=== PATIENT | female | born 1960 | race Caucasian/White ===

== ENCOUNTER 2016-10-29 21:20 | Emergency (ER) | payer SELFPAY ==
[~2016-10-29] VITALS: Ht 167.6 cm; Wt 103.4 kg
[2016-10-29 21:40] LABS: HEMATOCRIT 40.8 % (36.0-46.0); MCHC 34.3 G/DL (30.0-36.0); MCV 84.6 FL (83-99); MEAN PLAT.VOLUME 9.7 uM^3 (9.5-12.4); PLATELET COUNT 280 K/uL (156-360); RBC DIS.WIDTH-CV 12.5 % (11.8-14.6); RBC DIS.WIDTH-SD 37.6 % (39-53); RED BLOOD COUNT 4.82 M/uL (3.80-5.20); WHITE BLOOD COUNT 12.3 K/uL (4.1-10.2)
[2016-10-29 21:49] LABS: CHLORIDE 106 mEq/L (99-109); POTASSIUM 3.4 mEq/L (3.7-5.4); SODIUM 142 mEq/L (136-147)
[2016-10-29 21:51] LABS: GLUCOSE 135 mg/dL (70-99)
[2016-10-29 21:52] LABS: ANION GAP 13 MEQ/L (2-14)
[2016-10-29 21:55] LABS: GFR ESTIMATE (CALCULATED) > 59 mL/min/
[2016-10-29 21:56] LABS: UREA NITROGEN (BUN) 17 mg/dL (9-23)
[2016-10-29] MEDS ORDERED: RAMIPRIL5 MG PO (22:17)
[2016-10-29 22:56] LABS: MAGNESIUM 2.3 mg/dL (1.3-2.7)
[2016-10-30 00:26] VITALS: BP 155/92
== END 2016-10-30 00:27 | disposition home or self-care (01) ==
LOC: EME 21:20
DX: R20.2 Paresthesia of skin (principal); I10 Essential (primary) hypertension; Z88.0 Allergy status to penicillin
CPT/HCPCS: 70450; 71020; 80048; 82310; 83735; 84443; 85027; 99281; 99284

== ENCOUNTER 2017-12-06 21:22 | Emergency (ER) | payer SELFPAY ==
[~2017-12-06] VITALS: Ht 170.2 cm; Wt 102.1 kg
[~2017-12-06 21:22] MED LIST: RAMIPRIL5 MG PO
[2017-12-06 22:20] LABS: HEMATOCRIT 40.6 % (36.0-46.0); HEMOGLOBIN 13.8 G/DL (11.9-15.5); MCH 29.7 PG (29.0-34.0); MCV 87.3 FL (83-99); PLATELET COUNT 299 K/uL (156-360); RBC DIS.WIDTH-SD 38.5 % (39-53); RED BLOOD COUNT 4.65 M/uL (3.80-5.20); WHITE BLOOD COUNT 8.6 K/uL (4.1-10.2)
[2017-12-06 22:31] LABS: CHLORIDE 103 mEq/L (99-109); POTASSIUM 4.3 mEq/L (3.7-5.4); SODIUM 139 mEq/L (136-147)
[2017-12-06 22:33] LABS: GLUCOSE 98 mg/dL (70-99)
[2017-12-06 22:37] LABS: CREATININE 0.8 mg/dL (0.6-1.3); GFR ESTIMATE (CALCULATED) > 59 mL/min/; UREA NITROGEN (BUN) 13 mg/dL (9-23)
[2017-12-06 22:45] LABS: TROP-I INTERPRETATION NEGATIVE; TROPONIN-I < 0.01 ng/mL (0.0-0.30)
[2017-12-07 04:00] LABS: TROP-I INTERPRETATION NEGATIVE; TROPONIN-I < 0.01 ng/mL (0.0-0.30)
[2017-12-07] MEDS ORDERED: TYLENOL WITH C1 EACH PO (04:36)
[2017-12-07 05:11] VITALS: BP 133/88
[2017-12-07 07:26] LABS: BASOPHIL (%) 0.8 % (0-1); BASOPHIL COUNT 0.1 K/uL (0-0.1); EOSINOPHIL (%) 2.4 % (0-5); EOSINOPHIL COUNT 0.2 K/uL (0-0.3); IMMATURE GRANULOCYTE (%) 0.3 % (0.0-0.7); LYMPHOCYTE (%) 30.1 % (15-42); LYMPHOCYTE COUNT 2.6 K/uL (1.0-2.8); MONOCYTE (%) 11.4 % (3-12); NEUTROPHIL COUNT 4.8 K/uL (1.8-6.4)
== END 2017-12-07 05:15 | disposition home or self-care (01) ==
LOC: EME 21:22
PROVIDERS: Emergency Medicine
DX: J12.9 Viral pneumonia, unspecified (principal); M30.1 Polyarteritis with lung involvement [Churg-Strauss]; I10 Essential (primary) hypertension; Z87.891 Personal history of nicotine dependence; F32.9 Major depressive disorder, single episode, unspecified; F41.9 Anxiety disorder, unspecified; Z88.0 Allergy status to penicillin
CPT/HCPCS: 71046; 71275; 80048; 84484; 85025; 85027; 85379; 93005; 99281; 99284

== ENCOUNTER 2018-02-07 12:57 | Inpatient (IN) | payer SELFPAY ==
[~2018-02-07] VITALS: Ht 166.4 cm; Wt 103.8 kg
[~2018-02-07 12:57] MED LIST changes: +AZELASTINE205.5 MCG/ BOTH NARES; +NORVASC5 MG PO; +SYMBICORT60 INHALA1 IH; +TYLENOL WITH C1 EACH PO; +VENTOLIN HFA18 GM IH; +ZESTRIL40 MG PO
[2018-02-07 21:06] LABS: BASOPHIL (%) 0.3 % (0-1); EOSINOPHIL (%) 1.2 % (0-5); EOSINOPHIL COUNT 0.2 K/uL (0-0.3); HEMATOCRIT 34.5 % (36.0-46.0); IMMATURE GRANULOCYTE (%) 0.9 % (0.0-0.7); LYMPHOCYTE (%) 8.3 % (15-42); MCH 29.5 PG (29.0-34.0); MCHC 33.9 G/DL (30.0-36.0); MCV 86.9 FL (83-99); MONOCYTE (%) 7.4 % (3-12); MONOCYTE COUNT 0.9 K/uL (0-0.8); NEUTROPHIL (%) 81.9 % (45-76); RBC DIS.WIDTH-CV 12.8 % (11.8-14.6); RBC DIS.WIDTH-SD 40.7 % (39-53); RED BLOOD COUNT 3.97 M/uL (3.80-5.20); WHITE BLOOD COUNT 12.2 K/uL (4.1-10.2)
[2018-02-07 21:12] LABS: HEMOGLOBIN 11.7 G/DL (11.9-15.5); PLATELET COUNT 235 K/uL (156-360)
[2018-02-07 21:16] LABS: CHLORIDE 108 mEq/L (99-109); POTASSIUM 4.2 mEq/L (3.7-5.4); SODIUM 137 mEq/L (136-147)
[2018-02-07 21:18] LABS: GLUCOSE 103 mg/dL (70-99)
[2018-02-07 21:22] LABS: CREATININE 0.8 mg/dL (0.6-1.3); GFR ESTIMATE (CALCULATED) > 59 mL/min/; UREA NITROGEN (BUN) 13 mg/dL (9-23)
[2018-02-07] MEDS ORDERED: ADVIL,NUPRIN,M200 MG PO (22:56)
[2018-02-07] MEDS ORDERED: ASCORBIC ACID100 MG PO (22:57)
[2018-02-07] MEDS ORDERED: VITAMIN B12 100MCG PO (22:58)
[2018-02-07] MEDS ORDERED: VITAMIN B COMP1 EACH PO (22:58)
[2018-02-07] MEDS ORDERED: VITAMIN B-6100 MG PO (22:59)
[2018-02-07] MEDS ORDERED: VITAMIN D310000 UNI1 PO (23:16)
[2018-02-07 23:52] LABS: TROP-I INTERPRETATION NEGATIVE; TROPONIN-I < 0.01 ng/mL (0.0-0.30)
[2018-02-08] VITALS (7 sets, daily range): BP systolic 106–158; BP diastolic 55–86
[2018-02-08 05:41] LABS: HEMATOCRIT 34.7 % (36.0-46.0); MCHC 31.7 G/DL (30.0-36.0); MCV 88.3 FL (83-99); PLATELET COUNT 223 K/uL (156-360); RBC DIS.WIDTH-CV 12.5 % (11.8-14.6); RBC DIS.WIDTH-SD 40.7 % (39-53); RED BLOOD COUNT 3.93 M/uL (3.80-5.20)
[2018-02-08 06:23] LABS: ALBUMIN 3.7 G/DL (3.2-4.8); ALKALINE PHOSPHATASE 40 IU/L (3-129); ALT (GPT) 18 IU/L (3-49); AST (GOT) 23 IU/L (2-34); CHLORIDE 107 MEQ/L (99-109); CREATININE 0.7 MG/DL (0.6-1.3); GFR ESTIMATE (CALCULATED) > 59 mL/min/; GLUCOSE 194 mg/dL (70-99); POTASSIUM 3.9 MEQ/L (3.7-5.4); SODIUM 140 MEQ/L (136-147); TOTAL BILIRUBIN 0.5 MG/DL (0.0-1.0); TOTAL PROTEIN 6.2 G/DL (6.4-8.3); UREA NITROGEN (BUN) 12 mg/dL (9-23)
[2018-02-09 05:21] LABS: HEMATOCRIT 32.8 % (36.0-46.0); HEMOGLOBIN 10.9 G/DL (11.9-15.5); MCH 29.1 PG (29.0-34.0); MCHC 33.2 G/DL (30.0-36.0); MCV 87.7 FL (83-99); PLATELET COUNT 240 K/uL (156-360); RBC DIS.WIDTH-CV 12.4 % (11.8-14.6); RBC DIS.WIDTH-SD 39.6 % (39-53); RED BLOOD COUNT 3.74 M/uL (3.80-5.20); WHITE BLOOD COUNT 15.4 K/uL (4.1-10.2)
[2018-02-09 05:26] VITALS: BP 104/59
[2018-02-09 05:45] LABS: CHLORIDE 108 MEQ/L (99-109); CREATININE 0.7 MG/DL (0.6-1.3); GFR ESTIMATE (CALCULATED) > 59 mL/min/; GLUCOSE 184 mg/dL (70-99); POTASSIUM 4.3 MEQ/L (3.7-5.4); SODIUM 140 MEQ/L (136-147); UREA NITROGEN (BUN) 20 mg/dL (9-23)
[2018-02-09 07:30] VITALS: BP 105/80
[2018-02-09 11:53] VITALS: BP 107/60
[2018-02-09 13:53] LABS: SCL-70 (SCLERODERMA) ANTIBODY ND U/mL (0-99)
[2018-02-09 17:30] VITALS: BP 118/97
[2018-02-09 19:24] VITALS: BP 128/71
[2018-02-10] VITALS: BP 125/65
[2018-02-10 04:35] VITALS: BP 120/74
[2018-02-10 05:34] LABS: HEMATOCRIT 32.4 % (36.0-46.0); HEMOGLOBIN 10.5 G/DL (11.9-15.5); MCH 28.5 PG (29.0-34.0); MCHC 32.4 G/DL (30.0-36.0); PLATELET COUNT 259 K/uL (156-360); RBC DIS.WIDTH-CV 12.5 % (11.8-14.6); RBC DIS.WIDTH-SD 40.3 % (39-53); RED BLOOD COUNT 3.68 M/uL (3.80-5.20); WHITE BLOOD COUNT 15.9 K/uL (4.1-10.2)
[2018-02-10 05:50] LABS: CHLORIDE 108 MEQ/L (99-109); CREATININE 0.6 MG/DL (0.6-1.3); GFR ESTIMATE (CALCULATED) > 59 mL/min/; GLUCOSE 158 mg/dL (70-99); POTASSIUM 4.4 MEQ/L (3.7-5.4); SODIUM 139 MEQ/L (136-147); UREA NITROGEN (BUN) 22 mg/dL (9-23)
[2018-02-10 09:05] VITALS: BP 112/62
[2018-02-10 12:45] VITALS: BP 133/75
[2018-02-10 17:43] VITALS: BP 133/81
[2018-02-10 19:32] VITALS: BP 149/75
[2018-02-11 00:49] VITALS: BP 129/78
[2018-02-11 05:20] VITALS: BP 136/76
[2018-02-11 08:17] VITALS: BP 122/63
[2018-02-11] MEDS ORDERED: LEVAQUIN500 MG PO (11:57)
[2018-02-11] MEDS ORDERED: PREDNISONE10 MG PO (11:57)
[2018-02-11 13:55] LABS: Neutrophil Cytoplasmic Aby Negative (Negative)
== END 2018-02-11 14:29 | disposition home or self-care (01) | DRG 853 ==
LOC: AMB 12:57 → EME 12:57 → EDSTATUS 13:00 → AMB 13:00 → 4EAST 22:30 → EDOF 22:30 → CANRESERV 22:32 → ENRESERV 22:32 → 4EAST 02-08 00:55 → ENPENDDIS 02-11 → 4EAST 02-11 14:29
PROVIDERS: Emergency Medicine; Internal Medicine; Internal Medicine Pulmonary Disease
DX: A41.9 Sepsis, unspecified organism (principal); J96.01 Acute respiratory failure with hypoxia; J18.9 Pneumonia, unspecified organism; I10 Essential (primary) hypertension; F32.9 Major depressive disorder, single episode, unspecified; R00.0 Tachycardia, unspecified; Z87.891 Personal history of nicotine dependence; M25.50 Pain in unspecified joint; D64.9 Anemia, unspecified; G43.909 Migraine, unspecified, not intractable, without status migrainosus; E66.9 Obesity, unspecified; Z68.37 Body mass index [BMI] 37.0-37.9, adult; Z87.01 Personal history of pneumonia (recurrent); Z90.49 Acquired absence of other specified parts of digestive tract; J98.01 Acute bronchospasm; Z79.899 Other long term (current) drug therapy
CPT/HCPCS: 71045; 71046; 73130; 80048; 80053; 82728; 83605; 84484; 85025; 85027; 86021 90; 86038; 86215 90; 86235; 87040; 87070; 87116; 87205; 87206; 87449; 88108; 88173; 88312; 93005; 94640; 94640 76; 94799; 99202; 99281; 99285; J0330; J0456; J0692; J1644; J2250; J2543; J2920; J2930; J3010; J7050; J7512; S0028

== ENCOUNTER 2018-02-28 19:24 | Inpatient (IN) | payer SELFPAY ==
[~2018-02-28] VITALS: Ht 175.3 cm; Wt 101.5 kg
[~2018-02-28 19:24] MED LIST changes: +ADVIL,NUPRIN,M200 MG PO; +ASCORBIC ACID100 MG PO; +LEVAQUIN500 MG PO; +PREDNISONE10 MG PO; +VITAMIN B COMP1 EACH PO; +VITAMIN B-6100 MG PO; +VITAMIN B12 100MCG PO; +VITAMIN D310000 UNI1 PO
[2018-02-28 19:59] LABS: HEMATOCRIT 36.5 % (36.0-46.0); HEMOGLOBIN 12.4 G/DL (11.9-15.5); MCH 28.9 PG (29.0-34.0); MCV 85.1 FL (83-99); PLATELET COUNT 251 K/uL (156-360); RED BLOOD COUNT 4.29 M/uL (3.80-5.20); WHITE BLOOD COUNT 8.4 K/uL (4.1-10.2)
[2018-02-28 20:08] LABS: CHLORIDE 103 mEq/L (99-109); POTASSIUM 4.2 mEq/L (3.7-5.4); SODIUM 136 mEq/L (136-147)
[2018-02-28 20:09] LABS: GLUCOSE 100 mg/dL (70-99)
[2018-02-28 20:13] LABS: CREATININE 0.8 mg/dL (0.6-1.3); GFR ESTIMATE (CALCULATED) > 59 mL/min/
[2018-02-28 20:14] LABS: UREA NITROGEN (BUN) 10 mg/dL (9-23)
[2018-02-28 20:21] LABS: TROP-I INTERPRETATION NEGATIVE; TROPONIN-I < 0.01 ng/mL (0.0-0.30)
[2018-02-28] MEDS ORDERED: VITAMIN B COMP1 EACH PO (21:47)
[2018-02-28] MEDS ORDERED: MOBIC15 MG PO (21:47)
[2018-02-28] MEDS ORDERED: ASCORBIC ACID500 MG PO (21:47)
[2018-02-28] MEDS ORDERED: VITAMIN D31000 UNI2 PO (21:48)
[2018-02-28] MEDS ORDERED: VITAMIN B-6100 MG PO (21:48)
[2018-02-28] MEDS ORDERED: B-121000 MC2 PO (21:48)
[2018-02-28] MEDS ORDERED: PEPCID AC20 MG PO (21:49)
[2018-03-01 00:17] LABS: BASOPHIL (%) 0.6 % (0-1); BASOPHIL COUNT 0.1 K/uL (0-0.1); EOSINOPHIL (%) 2.5 % (0-5); EOSINOPHIL COUNT 0.2 K/uL (0-0.3); IMMATURE GRANULOCYTE (%) 0.5 % (0.0-0.7); LYMPHOCYTE (%) 16.5 % (15-42); LYMPHOCYTE COUNT 1.3 K/uL (1.0-2.8); MONOCYTE (%) 8.9 % (3-12); MONOCYTE COUNT 0.7 K/uL (0-0.8); NEUTROPHIL COUNT 5.7 K/uL (1.8-6.4)
[2018-03-01 03:37] VITALS: BP 116/67
[2018-03-01 08:15] VITALS: BP 128/72
[2018-03-01 12:25] VITALS: BP 120/76
[2018-03-01 15:29] VITALS: BP 146/78
[2018-03-01 19:35] VITALS: BP 143/77
[2018-03-01 23:19] VITALS: BP 121/84
[2018-03-02 04:46] VITALS: BP 119/60
[2018-03-02 05:15] LABS: BASOPHIL (%) 0.1 % (0-1); EOSINOPHIL (%) 0 % (0-5); HEMATOCRIT 32.6 % (36.0-46.0); HEMOGLOBIN 10.7 G/DL (11.9-15.5); IMMATURE GRANULOCYTE (%) 0.9 % (0.0-0.7); LYMPHOCYTE (%) 8.1 % (15-42); MCH 28.4 PG (29.0-34.0); MCHC 32.8 G/DL (30.0-36.0); MCV 86.5 FL (83-99); MONOCYTE (%) 6.3 % (3-12); MONOCYTE COUNT 0.7 K/uL (0-0.8); NEUTROPHIL (%) 84.6 % (45-76); NEUTROPHIL COUNT 9.9 K/uL (1.8-6.4); PLATELET COUNT 256 K/uL (156-360); RBC DIS.WIDTH-CV 12.7 % (11.8-14.6); RBC DIS.WIDTH-SD 40.6 % (39-53); RED BLOOD COUNT 3.77 M/uL (3.80-5.20); WHITE BLOOD COUNT 11.7 K/uL (4.1-10.2)
[2018-03-02 05:49] LABS: CHLORIDE 110 MEQ/L (99-109); CREATININE 0.7 MG/DL (0.6-1.3); GFR ESTIMATE (CALCULATED) > 59 mL/min/; POTASSIUM 3.9 MEQ/L (3.7-5.4); SODIUM 140 MEQ/L (136-147); UREA NITROGEN (BUN) 18 mg/dL (9-23)
[2018-03-02 06:16] LABS: GLUCOSE 202 mg/dL (70-99)
[2018-03-02 08:19] VITALS: BP 106/69
[2018-03-02 11:29] VITALS: BP 131/72
[2018-03-02 15:57] VITALS: BP 130/74
[2018-03-02 19:50] VITALS: BP 139/73
[2018-03-02 23:43] VITALS: BP 132/77
[2018-03-03 03:46] VITALS: BP 117/59
[2018-03-03 05:44] LABS: BASOPHIL (%) 0.1 % (0-1); EOSINOPHIL (%) 0 % (0-5); HEMATOCRIT 31.5 % (36.0-46.0); HEMOGLOBIN 10.2 G/DL (11.9-15.5); IMMATURE GRANULOCYTE (%) 2.2 % (0.0-0.7); LYMPHOCYTE (%) 6.7 % (15-42); LYMPHOCYTE COUNT 1.1 K/uL (1.0-2.8); MCH 28.7 PG (29.0-34.0); MCHC 32.4 G/DL (30.0-36.0); MCV 88.5 FL (83-99); MONOCYTE (%) 6.4 % (3-12); NEUTROPHIL (%) 84.6 % (45-76); NEUTROPHIL COUNT 13.3 K/uL (1.8-6.4); PLATELET COUNT 259 K/uL (156-360); RBC DIS.WIDTH-CV 13.1 % (11.8-14.6); RBC DIS.WIDTH-SD 42.4 % (39-53); RED BLOOD COUNT 3.56 M/uL (3.80-5.20); WHITE BLOOD COUNT 15.7 K/uL (4.1-10.2)
[2018-03-03 06:13] LABS: CHLORIDE 110 MEQ/L (99-109); CREATININE 0.6 MG/DL (0.6-1.3); GFR ESTIMATE (CALCULATED) > 59 mL/min/; GLUCOSE 166 mg/dL (70-99); POTASSIUM 4.3 MEQ/L (3.7-5.4); SODIUM 140 MEQ/L (136-147); UREA NITROGEN (BUN) 23 mg/dL (9-23)
[2018-03-03 08:06] VITALS: BP 130/79
[2018-03-03 11:17] VITALS: BP 137/77
[2018-03-03 14:54] VITALS: BP 145/86
[2018-03-03 19:29] VITALS: BP 160/75
[2018-03-04 00:06] VITALS: BP 150/70
[2018-03-04 04:38] VITALS: BP 140/80
[2018-03-04 05:45] LABS: HEMOGLOBIN 10.6 G/DL (11.9-15.5); MCH 28.6 PG (29.0-34.0); MCHC 33.1 G/DL (30.0-36.0); MCV 86.5 FL (83-99); PLATELET COUNT 275 K/uL (156-360); WHITE BLOOD COUNT 14.8 K/uL (4.1-10.2)
[2018-03-04 06:11] LABS: CHLORIDE 107 MEQ/L (99-109); CREATININE 0.6 MG/DL (0.6-1.3); GFR ESTIMATE (CALCULATED) > 59 mL/min/; GLUCOSE 157 mg/dL (70-99); POTASSIUM 3.9 MEQ/L (3.7-5.4); SODIUM 140 MEQ/L (136-147); UREA NITROGEN (BUN) 21 mg/dL (9-23)
[2018-03-04 06:55] LABS: ABS NEUTROPHIL COUNT 12.4; ANISOCYTOSIS 1+; EOSINOPHIL ABS CT 0; LYMPHOCYTES 6.9 % (15.0-45.0); METAMYELOCYTES 0.9 %; MYELOCYTES 1.7 %; NUCLEATED RBC'S 0.9; SEG.NEUTROPHILS 83.5 % (46.0-76.0)
[2018-03-04 08:32] VITALS: BP 140/77
[2018-03-04] MEDS ORDERED: LEVOFLOXACIN750 MG PO (09:39)
[2018-03-04] MEDS ORDERED: PREDNISONE10 MG PO (09:41)
[2018-03-04 11:59] VITALS: BP 139/72
[2018-03-07 22:21] LABS: Neutrophil Cytoplasmic Aby Negative (Negative)
== END 2018-03-04 14:45 | disposition home or self-care (01) | DRG 193 ==
LOC: EME 19:24 → 4EAST 03-01 00:07 → EDOF 03-01 00:07 → ENRESERV 03-01 00:13 → 2EAST 03-01 03:04 → ENRESERV 03-01 12:12 → 4EAST 03-01 14:38
PROVIDERS: Hospitalist; Internal Medicine; Internal Medicine Pulmonary Disease; Physician Assistant Medical; Student in an Organized Health Care Education/Training Program
DX: J18.9 Pneumonia, unspecified organism (principal); J96.01 Acute respiratory failure with hypoxia; J45.909 Unspecified asthma, uncomplicated; R04.0 Epistaxis; J33.9 Nasal polyp, unspecified; I27.20 Pulmonary hypertension, unspecified; I10 Essential (primary) hypertension; K21.9 Gastro-esophageal reflux disease without esophagitis; J98.4 Other disorders of lung; E66.9 Obesity, unspecified; D64.9 Anemia, unspecified; E55.9 Vitamin D deficiency, unspecified; D72.829 Elevated white blood cell count, unspecified; G43.909 Migraine, unspecified, not intractable, without status migrainosus; M19.90 Unspecified osteoarthritis, unspecified site; M25.50 Pain in unspecified joint; M79.1 Myalgia; R00.0 Tachycardia, unspecified; Z68.32 Body mass index [BMI] 32.0-32.9, adult; F32.9 Major depressive disorder, single episode, unspecified; F41.9 Anxiety disorder, unspecified; Z87.01 Personal history of pneumonia (recurrent); Z87.891 Personal history of nicotine dependence; Z96.642 Presence of left artificial hip joint
CPT/HCPCS: 71045; 71046; 71250; 80048; 80202; 82164 90; 82784; 83605; 84145 90; 84484; 85025; 85027; 85651; 86021 90; 86038; 86140; 87040; 87070; 87205; 87449; 87502; 93005; 93306; 94640; 94640 76; 94667; 94668; 94760; 94799; 99202; 99281; 99285; J0456; J0692; J1650; J1885; J2930; J3370; J7030; J7512